=== PATIENT | female | born 1985 ===

== ENCOUNTER 2018-09-03 08:55 | Emergency (ER) | payer OTHER ==
[2018-09-03] MEDS ORDERED: Sodium Chloride 0.9% 1,000 ML IV ONE (09:37)
[2018-09-03 09:59] LABS: BASO % 0.5 % (0.0-2.0); EOS # 0.1 K/uL (0.0-0.7); EOS % 1.3 % (0.0-4.0); HEMOGLOBIN 12.7 g/dL (11.0-16.0); LYMPH # 1.6 K/uL (1.0-4.3); LYMPH % 30.2 % (20.0-40.0); MEAN CELL VOLUME 98.6 fL (81.0-99.0); MEAN CORPUSCULAR HEMOGLOBIN 33.6 pg (27.0-31.0); MEAN CORPUSCULAR HGB CONC 34.1 g/dL (33.0-37.0); MEAN PLATELET VOLUME 8.8 fL (7.2-11.7); MONO # 0.6 K/uL (0.0-0.8); MONO % 11.2 % (0.0-10.0); NEUT % 56.8 % (50.0-75.0); RBC 3.78 Mil/uL (3.80-5.20); RED CELL DISTRIBUTION WIDTH 13.5 % (11.5-14.5); WHITE BLOOD COUNT 5.3 K/uL (4.8-10.8)
[2018-09-03 10:10] VITALS: O2SAT 100
[2018-09-03 10:11] LABS: ALB/GLOB RATIO 1.6 (1.0-2.1); ALBUMIN 4.8 g/dL (3.5-5.0); ALT/SGPT 15 U/L (9-52); AST/SGOT 22 U/L (14-36); BLOOD UREA NITROGEN 9 mg/dL (7-17); CALCIUM 9.2 mg/dl (8.6-10.4); GFR NON-AFRICAN AMERICAN > 60
[2018-09-03 10:30] LABS: HCG,QUALITATIVE URINE NEGATIVE (NEGATIVE)
[2018-09-03 10:37] LABS: SQUAMOUS EPITHIAL 13 /hpf (0-5); URINE BACTERIA RARE (<OCC); URINE BILIRUBIN NEGATIVE (NEGATIVE); URINE BLOOD NEGATIVE (NEGATIVE); URINE CLARITY Clear (Clear); URINE COLOR Yellow (YELLOW); URINE GLUCOSE (UA) NORMAL (Normal); URINE LEUKOCYTE ESTERASE 3+ Leu/uL (Negative); URINE PROTEIN NEGATIVE (NEGATIVE); URINE UROBILINOGEN NORMAL mg/dL (0.2-1.0)
--- NOTE | 2018-09-03 10:37 | C.PDOC ---
History Of Present Illness 33-year-old female with a PMHx of seizure disorder, presents to the ED for evaluation status-post witnessed seizure that occurred yesterday. Per relative, patient had generalized seizure activity lasting about 2 minutes. Patient today states she feels "off" and as if she might have another seizure. Prior to this, her last seizure was on 08/14/18. At that time she was evaluated at another hospital and later followed up with her doctor, who increased her Lamictal dose to 100mg. She reports taking her medications as instructed, with no missed doses. Denies any fever, cough, headaches, or other complaints. Patient also denies any urinary incontinence, tongue bite, head trauma, or other injury. Time Seen by Provider: 09/03/18 09:29 Chief Complaint (Nursing): Seizure History Per: Patient History/Exam Limitations: no limitations Recent Seizure Activity Began: Days Ago: (1) Number Of Seizures: One Length Of Seizures (Duration): Minutes (2) Quality Of Seizure: Generalized Past Medical History Reviewed: Historical Data, Nursing Documentation, Vital Signs Vital Signs: Last Vital Signs Temp 98.8 F 09/03/18 09:12 Pulse 73 09/03/18 09:12 Resp 20 09/03/18 09:12 BP 111/74 09/03/18 09:12 Pulse Ox 100 09/03/18 09:12 - Medical History PMH: Seizures (Keppra 500mg BID, Lamictal 100mg BID, and Oxcarbazepine 600mg BID) Family History: States: No Known Family Hx - Social History Hx Alcohol Use: No Hx Substance Use: No Review Of Systems Constitutional: Negative for: Fever, Chills Eyes: Negative for: Vision Change ENT: Negative for: Other (bit tongue) Cardiovascular: Negative for: Chest Pain, Palpitations Respiratory: Negative for: Shortness of Breath Gastrointestinal: Negative for: Nausea, Vomiting, Diarrhea Genitourinary: Negative for: Incontinence Skin: Negative for: Rash, Lesions Neurological: Positive for: Seizures (x 1). Negative for: Weakness, Numbness, Change in Speech, Altered Mental Status Physical Exam - Physical Exam Appears: Non-toxic, No Acute Distress Skin: Warm, Dry, No Rash Head: Atraumatic, Normacephalic Eye(s): bilateral: Normal Inspection, PERRL, EOMI Oral Mucosa: Moist Neck: Normal ROM Chest: Symmetrical Cardiovascular: Rhythm Regular, No Murmur Respiratory: Normal Breath Sounds, No Rales, No Rhonchi, No Wheezing Gastrointestinal/Abdominal: Soft, No Tenderness, No Distention Back: Normal Inspection, No Vertebral Tenderness Extremity: Bilateral: Atraumatic, Normal Color And Temperature, Normal ROM Pulses: Left Dorsalis Pedis: Normal, Right Dorsalis Pedis: Normal Neurological/Psych: Oriented x3, Normal Speech, Normal Cranial Nerves, Normal Motor (strength symmetric throughout), Normal Sensation, Other (No focal deficits) Gait: Steady ED Course And Treatment - Laboratory Results Result Diagrams: 09/03/18 09:55 09/03/18 09:55 Lab Results: Total Bilirubin 0.5 mg/dL (0.2-1.3) 09/03/18 09:55 AST 22 U/L (14-36) 09/03/18 09:55 ALT 15 U/L (9-52) 09/03/18 09:55 Alkaline Phosphatase 90 U/L (38-126) 09/03/18 09:55 Total Protein 7.8 g/dL (6.3-8.3) 09/03/18 09:55 Albumin 4.8 g/dL (3.5-5.0) 09/03/18 09:55 Globulin 3.0 gm/dL (2.2-3.9) 09/03/18 09:55 Albumin/Globulin Ratio 1.6 (1.0-2.1) 09/03/18 09:55 O2 Sat by Pulse Oximetry: 100 (RA) Pulse Ox Interpretation: Normal Medical Decision Making Medical Decision Making: Impression: Seizure Plan: --Blood work and urine sent --1 mg PO Ativan given --NS IV fluids infusing Diagnostics reviewed with no acute abnormality. Patient remained afebrile with stable vital signs alert and oriented without neuro deficits. Patient stable for discharge. Patient instructed to follow up with PCP and neuro Disposition Counseled Patient/Family Regarding: Diagnosis, Need For Followup - Disposition Disposition: HOME/ ROUTINE Disposition Time: 11:14 Condition: STABLE Additional Instructions: Por favor contine tomando medicamentos Consulte a alexander quin en pocos theodore. Instructions: Seizures, Adult (DC) Forms: [employer] (Japanese) Print Language: SURINAMESE - POA Present On Arrival: None - Clinical Impression Clinical Impression: Seizure - PA / WASTE ELIMINATION / Resident Statement MD/DO has reviewed & agrees with the documentation as recorded. - Scribe Statement The provider has reviewed the documentation as recorded by the Charlesibhai Juarez All medical record entries made by the Charlesibhai were at my direction and p ersonally dictated by me. I have reviewed the chart and agree that the record accurately reflects my personal performance of the history, physical exam, medical decision making, and the department course for this patient. I have also personally directed, reviewed, and agree with the discharge instructions and disposition.
[2018-09-03 10:51] LABS: BARBITURATES, UR NEGATIVE (NEGATIVE); BENZODIAZEPINES, UR NEGATIVE (NEGATIVE); OPIATES, UR NEGATIVE (NEGATIVE); PHENCYCLIDINE, UR NEGATIVE (NEGATIVE)
[2018-09-03 11:36] VITALS: BP 102/61; PULSE 82; RESP 18; TEMP 98.2
== END 2018-09-03 11:37 | disposition home or self-care (01) ==
LOC: C.ER 08:55
DX: R56.9 Unspecified convulsions (principal)
CPT/HCPCS: 80053; 80177; 80320; 80324; 80345; 80346; 80349; 80353; 80358; 80361; 81001; 83992; 84703; 85025; 96360; 99285; J7030